=== PATIENT | female | born 1980 | race Caucasian/White ===

== ENCOUNTER 2018-11-15 14:44 | Emergency (ER) | payer OTHER ==
[~2018-11-15] VITALS: Ht 160 cm; Wt 45.4 kg
[~2018-11-15 14:44] MED LIST: ATACAND 32 MG PO; NORVASC 10 MG TAB PO; Synthroid PO; TENORMIN100 M1 PO; Vitamin B-1 PO
== END 2018-11-15 21:58 | disposition home or self-care (01) ==
LOC: ER 14:44
DX: E86.0 Dehydration (principal); F10.20 Alcohol dependence, uncomplicated

== ENCOUNTER 2022-03-15 21:07 | Emergency (ER) | payer OTHER ==
[~2022-03-15] VITALS: Ht 160 cm; Wt 43.1 kg
[2022-03-15] MEDS ORDERED: LEVOTHYROXINE25 MCG PO (21:18)
[2022-03-15] MEDS ORDERED: ATACAND32 MG PO (21:19)
== END 2022-03-15 23:56 | disposition home or self-care (01) ==
LOC: ER 21:07
DX: F10.229 Alcohol dependence with intoxication, unspecified (principal); R11.10 Vomiting, unspecified; I10 Essential (primary) hypertension; E03.9 Hypothyroidism, unspecified

== ENCOUNTER 2024-07-18 10:49 | Outpatient (CLI) | payer OTHER ==
[~2024-07-18 10:49] MED LIST changes: +ATACAND32 MG PO; +LEVOTHYROXINE25 MCG PO
== END 2024-07-18 10:51 | disposition home or self-care (01) ==
LOC: TOM 10:49
PROVIDERS: ATTEND Internal Medicine Endocrinology, Diabetes & Metabolism
DX: D27.0 Benign neoplasm of right ovary (principal); D21.9 Benign neoplasm of connective and other soft tissue, unspecified